=== PATIENT | male | born 1955 | race Caucasian/White ===

== ENCOUNTER → 2021-12-27 | Outpatient (CLI) | payer OTHER | END | disposition home or self-care (01) | LOC: Rad HDHVI 16:08 | PROVIDERS: ATTEND Internal Medicine Cardiovascular Disease | DX: I65.23 Occlusion and stenosis of bilateral carotid arteries (principal); I10 Essential (primary) hypertension | CPT/HCPCS: 93880 ==

== ENCOUNTER → 2021-12-30 | Outpatient (CLI) | payer OTHER | END | disposition home or self-care (01) | LOC: Rad HDHVI 13:46 | PROVIDERS: ATTEND Internal Medicine Cardiovascular Disease | DX: I10 Essential (primary) hypertension (principal) | CPT/HCPCS: 93306 ==

== ENCOUNTER → 2022-01-04 | Outpatient (CLI) | payer OTHER ==
[~2022-01-04] VITALS: Ht 175.3 cm; Wt 108.9 kg
== END | disposition home or self-care (01) ==
LOC: Rad HDHVI 08:06
PROVIDERS: ATTEND Internal Medicine Cardiovascular Disease
DX: E78.5 Hyperlipidemia, unspecified (principal); I10 Essential (primary) hypertension; J44.9 Chronic obstructive pulmonary disease, unspecified; I50.43 Acute on chronic combined systolic (congestive) and diastolic (congestive) heart failure; Z82.49 Family history of ischemic heart disease and other diseases of the circulatory system
CPT/HCPCS: 78452; 93017; 96374; A9500

== ENCOUNTER → 2022-01-11 | Outpatient (CLI) | payer OTHER | END | disposition home or self-care (01) | LOC: Rad HDHVI 08:58 | PROVIDERS: ATTEND Internal Medicine | DX: M19.012 Primary osteoarthritis, left shoulder (principal) | CPT/HCPCS: 73030 ==

== ENCOUNTER → 2022-01-27 | Outpatient (CLI) | payer OTHER ==
[~2022-01-27] MED LIST: IOHEXOL 350 MG/ML 100ML IJ ONE
== END | disposition home or self-care (01) ==
LOC: Rad HDHVI 09:10
PROVIDERS: ATTEND Internal Medicine
DX: R51.9 Headache, unspecified (principal)
CPT/HCPCS: 70450; Q9967

== ENCOUNTER → 2022-09-19 | Outpatient (CLI) | payer MEDICARE, OTHER | END | disposition home or self-care (01) | LOC: Rad HDHVI 16:06 | PROVIDERS: ATTEND Internal Medicine Cardiovascular Disease | DX: J34.2 Deviated nasal septum (principal); J32.0 Chronic maxillary sinusitis; J34.89 Other specified disorders of nose and nasal sinuses; R23.8 Other skin changes | CPT/HCPCS: 70486 ==

== ENCOUNTER → 2023-12-20 | Outpatient (CLI) | payer MEDICARE, BC | END | disposition home or self-care (01) | LOC: Rad HDHVI 08:05 | PROVIDERS: ATTEND Internal Medicine Cardiovascular Disease | DX: I73.9 Peripheral vascular disease, unspecified (principal) | CPT/HCPCS: 93925 ==

== ENCOUNTER → 2024-01-01 | Outpatient (CLI) | payer MEDICARE, BC | END | disposition home or self-care (01) | LOC: Rad HDHVI 08:02 | PROVIDERS: ATTEND Internal Medicine Cardiovascular Disease | DX: I50.30 Unspecified diastolic (congestive) heart failure (principal) | CPT/HCPCS: 93306 ==

== ENCOUNTER → 2024-01-05 | Outpatient (CLI) | payer MEDICARE, BC ==
[~2024-01-05] VITALS: Ht 175.3 cm; Wt 108.9 kg
== END | disposition home or self-care (01) ==
LOC: Rad HDHVI 08:59
PROVIDERS: ATTEND Internal Medicine Cardiovascular Disease
DX: I11.0 Hypertensive heart disease with heart failure (principal); I51.7 Cardiomegaly; E78.00 Pure hypercholesterolemia, unspecified; I50.33 Acute on chronic diastolic (congestive) heart failure; Z82.49 Family history of ischemic heart disease and other diseases of the circulatory system
CPT/HCPCS: 78452; 93017; 96374; A9500

== ENCOUNTER 2024-11-22 17:36 | Emergency (ER) | payer BC, MEDICARE, OTHER ==
[~2024-11-22] VITALS: Ht 172.7 cm; Wt 105.5 kg
--- NOTE | 2024-11-22 17:42 | ECG ---
[facility] Test Date: 2024-11-22 Test Time: 17:41:29 Pat Name: ARETHA BARBOZA Department: ER Room: Gender: M Sole Assessor: JOHANNY : 1955 Requested By: EMERGENCY EMERGENCY Order Number: [id number] Reading MD: Desean Werner Measurements Intervals [place] Rate: 88 P: 21 WA: 244 QRS: -3 QRSD: 150 T: 6 QT: 391 QTc: 473 Interpretive Statements Sinus rhythm Prolonged WA interval Right bundle branch block Electronically Signed On 11-24-2024 16:47:19 PDT by Desean Werner Please click the below link to view image of tracing.
--- NOTE | 2024-11-22 17:52 | ED.PDOC ---
HPI Comments This is a 69 year old male presents to the ED with chief complaint of chest pain. Patient reports that he had been diagnosed previously with Pericarditis in [place] on 11/06. Patient relays that he was admitted for a night with IV antibiotics and sent home the next day with antibiotics. Patient states that he had been experiencing chest pressure at the time, but is still present, occurring intermittently since then with associated SOB. Patient notes that his current pain i 09/19. Patient denies any N/V, dizziness, syncope, headache, numbness, or weakness. No signs were stable at arrival. Chief Complaint: Chest Pain Time Seen by MD: 17:49 Reviewed Notes: Nurses Notes, Medications, Allergies Allergies: Coded Allergies: NO KNOWN ALLERGIES (Unverified , 01/04/22) Information Source: Patient, Spouse Mode of Arrival: Ambulatory Severity: Moderate Timing: Weeks Duration: Since onset Prehospital treatment: None Location: Substernal Radiation: No Radiation Quality: Pressure Onset: At Rest Cardiac Risk Factors: HTN PE Risk Factors: None History of: Similar pain in past Associated Signs and Symptoms: SOB Past Medical History PAST MEDICAL HISTORY: HTN Surgical History (Other): Shoulder surgery, back surgery Family History Family History: Reviewed,noncontributory to illness Social History Smoker: Non-Smoker Alcohol: Denies ETOH Use Drugs: Denies Drug Use Lives In: Home Constitutional: denies: chills, diaphoresis, fatigue, fever, malaise, sweats, weakness, others EENTM: denies: blurred vision, double vision, ear bleeding, ear discharge, ear drainage, ear pain, ear ringing, eye pain, eye redness, hearing loss, mouth pain , mouth swelling, nasal discharge, nose bleeding, nose congestion, nose pain, photophobia, tearing, throat pain, throat swelling, voice changes, others Respiratory: reports: shortness of breath; denies: cough, hemoptysis, orthopnea, SOB at rest, SOB with excertion, stridor, wheezing, others Cardiovascular: reports: chest pain; denies: dizzy spells, diaphoresis, Dyspnea on exertion, edema, irregular heart beat, left arm pain, lightheadedness, palpitations, PND, syncope, others Gastrointestinal: denies: abdomen distended, abdominal pain, blood streaked bowels, constipated, diarrhea, dysphagia, difficulty swallowing, hematemesis, melena, nausea, poor appetite, poor fluid intake, rectal bleeding, rectal pain, vomiting, others Genitourinary: denies: burning, dysuria, flank pain, frequency, hematuria, incontinence, penile discharge, penile sore, pain, testicle pain, testicle swelling, urgency, others Neurological: denies: dizziness, fainting, headache, left sided numbness, left sided weakness, numbness, paresthesia, pre-existing deficit, right sided numbness, right sided weakness, seizure, speech problems, tingling, tremors, weakness, others Musculoskeletal: denies: back pain, gout, joint pain, joint swelling, muscle pain, muscle stiffness, neck pain, others Integumetry: denies: bruises, change in color, change in hair/nails, dryness, laceration, lesions, lumps, rash, wounds, others Allergic/Immunocompromised: denies: Difficulty Healing, Frequent Infections, Hives, Itching, others Hematologic/Lymphatic: denies: anemia, blood clots, easy bleeding, easy bruising, swollen glands, others Endocrine: denies: excessive hunger, excessive sweating, excessive thirst, excessive urination, flushing, intolerance to cold, intolerance to heat, unexplained weight gain, unexplained weight loss, others Psychiatric: denies: anxiety, bipolar disorder, depression, hopeless, panic disorder, schizophrenia, sleepless, suicidal, others All Other Systems: Reviewed and Negative Physical Exam General Appearance: Moderate Distress (Gadv-wj-sevspuie distress due to central chest pain concerns.) HEENT: Normal ENT Inspection, Pharynx Normal, TMs Normal Neck: Full Range of Motion, Non-Tender, Normal, Normal Inspection Respiratory: Lungs Clear, No Accessory Muscle Use, No Respiratory Distress, Normal Breath Sounds, Other (Patient complains of substernal chest pain that is unable to be amplified on palpation. No signs of trauma.) Cardiovascular: No Edema, No JVD, No Murmur, No Gallop, Normal Peripheral Pulses, Regular Rate/Rhythm, Other (Unremarkable cardiac evaluation.) Breast Exam: Deferred Gastrointestinal: No Organomegaly, Non Tender, No Pulsatile Mass, Normal Bowel Sounds, Soft Genitalia: Deferred Pelvic: Deferred Rectal: Deferred Extremities: No calf tenderness, Normal capillary refill, Normal inspection, Normal range of motion, Non-tender, No pedal edema Neurologic: Alert, No Motor Deficits, Normal Affect, Normal Mood, No Sensory Deficits Cerebellar Function: Normal Reflexes: Normal Skin: Dry, Normal Color, Warm Lymphatic: No Adenopathy Was a procedure done? Was a procedure done?: No CP Differential Dx Differential Diagnosis: A-fib, Anxiety / Panic Attack, Atrial Dysrhythmia, AV Block 1st Degree, [place] Differential Diagnosis: CHF Differential Diagnosis: Angina, Chest Wall Pain, Pneumonia X-Ray, Labs, Meds, VS Vital Signs Date Time Temp Pulse Resp B/P (MAP) Pulse Ox O2 Delivery O2 Flow Rate FiO2 11/22/24 19:53 94 19 114/75 (88) 94 11/22/24 19:32 114/75 11/22/24 18:32 111/84 11/22/24 18:25 98.1 97 18 111/84 (93) 95 98.1 11/22/24 18:25 97 18 95 Room Air* 0 21 11/22/24 17:49 99.2 99 18 145/94 (111) 96 99.2 11/22/24 17:41 88 Lab Test 11/22/24 18:52 11/22/24 17:55 Range/Units Troponin I High Sensitivity 4 4 </=54 ng/L White Blood Count 10.8 4.4-10.8 10^3/uL Red Blood Count 4.96 4.5-5.90 10^6/uL Hemoglobin 15.4 13.5-17.5 g/dL Hematocrit 44.6 41.0-53.0 % Mean Corpuscular Volume 89.9 80.0-100.0 fL Mean Corpuscular Hemoglobin 31.1 28.0-32.0 pg Mean Corpuscular Hemoglobin Concent 34.6 32.0-36.0 g/dL Red Cell Distribution Width 12.7 11.8-14.3 % Platelet Count 391 140-450 10^3/uL Mean Platelet Volume 6.9 6.9-10.8 fL Neutrophils (%) (Auto) 78.0 37.0-80.0 % Lymphocytes (%) (Auto) 8.2 L 10.0-50.0 % Monocytes (%) (Auto) 13.0 H 0.0-12.0 % Eosinophils (%) (Auto) 0.4 0.0-7.0 % Basophils (%) (Auto) 0.4 0.0-2.0 % Neutrophils # (Auto) 8.4 1.6-8.6 10 ^3/uL Lymphocytes # (Auto) 0.9 0.4-5.4 10 ^3/uL Monocytes # (Auto) 1.4 H 0-1.3 10 ^3/uL Eosinophils # (Auto) 0 0-0.8 10 ^3/uL Basophils # (Auto) 0 0-0.2 10 ^3/uL Nucleated Red Blood Cells 0.0 % Sodium Level 139 136-145 mmol/L Potassium Level 4.0 3.5-5.1 mmol/L Chloride Level 100 98-107 mmol/L Carbon Dioxide Level 29 20-31 mmol/L Anion Gap 10 5-15 Blood Urea Nitrogen 18 9-23 mg/dL Creatinine 1.09 0.700-1.30 mg/dL Glomerular Filtration Rate Calc 74 >90 mL/min BUN/Creatinine Ratio 16.5 10.0-20.0 Serum Glucose 120 H 74-106 mg/dL Calcium Level 10.3 8.7-10.4 mg/dL B-Type Natriuretic Peptide 45.44 0-100 pg/mL Current Medications Medications (Trade) Dose Ordered Sig/Pascale Route Start Time Stop Time Status Last Admin Nitroglycerin (Ntrostat Sublingual) 0.4 mg ONCE ONCE SL 11/22/24 18:00 11/22/24 18:01 DC 11/22/24 18:32 Aspirin 81 mg ONCE ONCE PO 11/22/24 18:00 11/22/24 18:01 DC 11/22/24 18:31 X-Ray, Labs, Meds, VS Comment All studies performed the ED were evaluated by me personally. Serum studies were unremarkable for any systemic processes including unremarkable cardiac markers. EKG revealed a sinus rhythm with a rate of 88. Prolonged FL interval and right bundle-branch block was noted. FL interval of 244 and QT interval of 391. Chest x-ray was unremarkable for any consolidation or signs of intrapulmonary masses or concerns. Patient responded well to medication dispensed. Advised patient to follow up with primary care provider as he may be experiencing angina from a coronary artery concern. Time of 1ST Reevaluation: 20:42 Reevaluation 1ST: Improved Consultation: PCP, Cardiology Patient Education/Counseling: Diagnosis, Treatment Family Education/Counseling: Diagnosis, Treatment, No Family Present Departure 1 Departure Time of Disposition: 20:47 Impression: Primary Impression: Chest pain Disposition: HOME / SELF CARE / HOMELESS Condition: Stable Additional Instructions: Advised patient utilize medication as needed for symptomatic relief. Patient should follow up with the primary care provider for re-evaluation and probable cardiac referral. e-Prescriptions Nitroglycerin (Nitrostat) 0.4 Mg Sub 0.4 MG SL Q6HP PRN, #10 INJ Prov: HAILE ESPINOSA PAC 11/22/24 Discharged With: Self, Spouse Critical Care Note Critical Care Time?: No Stability Stability form required: No Heart Score Heart Score: Heart Score Response (Comments) Value History Slightly Suspicious 0 EKG Repolarization Disturb 1 Age >65 2 Risk Factors 1 or 2 risk factors 1 Troponin Normal limit 0 Total 4 I personally scribed for HAILE ESPINOSA PAC ([email or web address]) on 11/22/24 at 17:52. Electronically submitted by Jeremie Witt ([email or web address]). HAILE ESPINOSA PAC Nov 22, 2024 17:52
[2024-11-22 18:15] LABS: Basophils # (auto) 0 10 ^3/uL (0-0.2); Basophils % (auto) 0.4 % (0.0-2.0); Eosinophils # (auto) 0 10 ^3/uL (0-0.8); Eosinophils % (auto) 0.4 % (0.0-7.0); Hematocrit 44.6 % (41.0-53.0); Hemoglobin 15.4 g/dL (13.5-17.5); Lymphocytes # (auto) 0.9 10 ^3/uL (0.4-5.4); Lymphocytes % (auto) 8.2 % (10.0-50.0); Mean Corpuscular Hemoglobin 31.1 pg (28.0-32.0); Mean Corpuscular Hgb Conc. 34.6 g/dL (32.0-36.0); Mean Corpuscular Volume 89.9 fL (80.0-100.0); Monocytes # (auto) 1.4 10 ^3/uL (0-1.3); Neutrophils # (auto) 8.4 10 ^3/uL (1.6-8.6); Platelet Count (auto) 391 10^3/uL (140-450); Red Blood Cells 4.96 10^6/uL (4.5-5.90); Red Cell Distribution Width 12.7 % (11.8-14.3); White Blood Cell 10.8 10^3/uL (4.4-10.8)
[2024-11-22 18:24] LABS: Chloride 100 mmol/L (98-107); Sodium 139 mmol/L (136-145)
[2024-11-22 18:25] VITALS: PULSE 97; RESP 18; TEMP 98.1; O2SAT 95
[2024-11-22 18:25] LABS: Anion Gap 10 (5-15); Carbon Dioxide 29 mmol/L (20-31)
[2024-11-22 18:26] LABS: Calcium 10.3 mg/dL (8.7-10.4)
--- NOTE | 2024-11-22 18:26 | DVH ---
CHEST RADIOGRAPH Indication: Chest pain Technique: Single frontal view of the chest was obtained Comparison: None FINDINGS: Lines and Tubes: None Lungs: No focal consolidation. Pleura: No effusion. No pneumothorax. Cardiomediastinal contours: Unremarkable Bones: No acute osseous abnormality. IMPRESSION: 1. No acute cardiopulmonary disease.
[2024-11-22 18:31] LABS: BUN/Creatinine Ratio 16.5 (10.0-20.0); Blood Urea Nitrogen 18 mg/dL (9-23)
[2024-11-22] MEDS: ASPirin 81 mg TAB PO ONE (18:31)
[2024-11-22 18:32] LABS: Glucose 120 mg/dL (74-106)
[2024-11-22] MEDS: NITROGLYCERIN 0.4 MG SL TAB SL ONE (18:32)
[2024-11-22] MEDS ORDERED: NITR0.4S29 SL (20:48)
[2024-11-22 21:25] VITALS: BP 114/75; PULSE 94; RESP 19; O2SAT 94
== END 2024-11-22 21:48 | disposition home or self-care (01) ==
LOC: ER 17:36
DX: R07.89 Other chest pain (principal); R06.02 Shortness of breath; I10 Essential (primary) hypertension; Z98.890 Other specified postprocedural states
CPT/HCPCS: 36415; 71045; 80048; 83880; 84484; 85025; 93005

== ENCOUNTER 2025-01-08 07:50 | Outpatient (CLI) | payer OTHER ==
[~2025-01-08 07:50] MED LIST changes: -IOHEXOL 350 MG/ML 100ML IJ ONE; +NITR0.4S29 SL
[2025-01-08 08:18] LABS: Hematocrit 42.7 % (41.0-53.0); Hemoglobin 14.8 g/dL (13.5-17.5); Mean Corpuscular Hemoglobin 31.4 pg (28.0-32.0); Mean Corpuscular Volume 90.8 fL (80.0-100.0); Nucleated Red Blood Cells % 0.1 %
[2025-01-08 09:11] LABS: Alanine Aminotransferase 22 U/L (7-40); Albumin 4.2 g/dL (3.2-4.8); Alkaline Phosphatase 66 U/L (46-116); Anion Gap 9 (5-15); BUN/Creatinine Ratio 15.2 (10.0-20.0); Bilirubin, Total 0.6 mg/dL (0.2-1.0); Blood Urea Nitrogen 12 mg/dL (9-23); Calcium 9.3 mg/dL (8.7-10.4); Carbon Dioxide 25 mmol/L (20-31); Cholesterol 143 mg/dL (< 200); HDL Cholesterol 41 mg/dL (40-59); Potassium 4.0 mmol/L (3.5-5.1); Sodium 143 mmol/L (136-145); Total Protein 6.3 g/dL (5.7-8.2); Triglycerides 79 mg/dL (< 150)
[2025-01-08 09:19] LABS: Chloride 109 mmol/L (98-107); Glucose 112 mg/dL (74-106)
== END 2025-01-08 17:00 | disposition home or self-care (01) ==
LOC: LAB 07:50
PROVIDERS: ATTEND Nurse Practitioner Family
DX: I10 Essential (primary) hypertension (principal); E78.5 Hyperlipidemia, unspecified; R73.9 Hyperglycemia, unspecified; R35.1 Nocturia; Z00.00 Encounter for general adult medical examination without abnormal findings
CPT/HCPCS: 36415; 80053; 80061; 82043; 83036; 84153; 84443; 85025

== ENCOUNTER 2025-01-20 12:52 | Outpatient (CLI) | payer OTHER ==
[2025-01-20 12:58] VITALS: BP 130/69; PULSE 70; RESP 18; O2SAT 95
[2025-01-20 13:10] VITALS: BP 117/62; PULSE 70; RESP 18; O2SAT 95
--- NOTE | 2025-01-20 14:01 | DVH ---
XY CHEST TWO VIEWS ROUTINE CLINICAL HISTORY: PRE OP CARDIA CLEARANCE, pain COMPARISON: XY CHEST PORTABLE on DOS: 11/22/24 TECHNIQUE: Frontal and lateral view of the chest was obtained FINDINGS: Lines and Tubes: None Lungs: No focal consolidation. Pleura: No effusion. No pneumothorax. Cardiomediastinal contours: Unremarkable Bones: No acute osseous abnormality. IMPRESSION: No acute cardiopulmonary disease.
[2025-01-20] MEDS ORDERED: METO25TA93 PO (15:03)
[2025-01-20] MEDS ORDERED: TRIA37.587 PO (15:03)
[2025-01-20] MEDS ORDERED: SIMV20TA20 PO (15:03)
[2025-01-20] MEDS ORDERED: LISI20TA56 PO (15:03)
[2025-01-20] MEDS ORDERED: MECL-90 PO (15:03)
[2025-01-20] MEDS ORDERED: FLUT1SPR5 (15:03)
[2025-01-20] MEDS ORDERED: NITR0.4S29 SL (15:03)
[2025-01-20] MEDS ORDERED: CLOP75TA70 PO (15:05)
== END 2025-01-20 17:00 | disposition home or self-care (01) ==
LOC: Rad HDHVI 12:52
PROVIDERS: ATTEND Internal Medicine Cardiovascular Disease
DX: Z01.818 Encounter for other preprocedural examination (principal); I20.9 Angina pectoris, unspecified; I45.10 Unspecified right bundle-branch block
CPT/HCPCS: 71046; 93005; G0463

== ENCOUNTER 2025-01-22 14:59 | Outpatient (CLI) | payer OTHER ==
[~2025-01-22 14:59] MED LIST changes: +CLOP75TA70 PO; +FLUT1SPR5; +LISI20TA56 PO; +MECL-90 PO; +METO25TA93 PO; +SIMV20TA20 PO; +TRIA37.587 PO
== END 2025-01-22 17:00 | disposition home or self-care (01) ==
LOC: Rad HDHVI 14:59
PROVIDERS: ATTEND Internal Medicine Cardiovascular Disease
DX: I07.1 Rheumatic tricuspid insufficiency (principal); R07.89 Other chest pain
CPT/HCPCS: 93306

== ENCOUNTER 2025-01-23 07:20 | Day surgery (SDC) | payer OTHER ==
[2025-01-20 15:50] LABS: Hematocrit 42.8 % (41.0-53.0); Hemoglobin 14.9 g/dL (13.5-17.5); Mean Corpuscular Hemoglobin 31.4 pg (28.0-32.0); Mean Corpuscular Volume 90.6 fL (80.0-100.0); Nucleated Red Blood Cells % 0.0 %
[2025-01-20 16:08] LABS: INR 1.03 (0.9-1.15); Partial Thromboplastin Time 27.3 SEC (24.5-34.5); Prothrombin Time 10.9 sec (9.3-11.8)
[2025-01-20 16:11] LABS: Alanine Aminotransferase 32 U/L (7-40); Albumin 4.7 g/dL (3.2-4.8); Alkaline Phosphatase 76 U/L (46-116); Anion Gap 7 (5-15); BUN/Creatinine Ratio 17.2 (10.0-20.0); Blood Urea Nitrogen 15 mg/dL (9-23); Calcium 9.2 mg/dL (8.7-10.4); Carbon Dioxide 30 mmol/L (20-31); Chloride 103 mmol/L (98-107); Glucose 98 mg/dL (74-106); Potassium 3.9 mmol/L (3.5-5.1); Sodium 140 mmol/L (136-145); Total Protein 7.1 g/dL (5.7-8.2)
[2025-01-20 16:12] LABS: Bilirubin, Total 0.3 mg/dL (0.2-1.0)
[2025-01-23] VITALS (8 sets, daily range): BP systolic 124–169; BP diastolic 76–96; PULSE 50–59; RESP 13–19; TEMP 97.8; O2SAT 93–96
[~2025-01-23] VITALS: Ht 175.3 cm; Wt 104.3 kg
[2025-01-23] MEDS ORDERED: IOHEXOL 350 MG/ML 100ML IJ ONE ×2 (11:43→13:13)
[2025-01-23] MEDS ORDERED: ANGIOMAX 250 MG VIAL IV ONE (11:46)
[2025-01-23] MEDS ORDERED: SODIUM CHL 0.9% 0 ML ONE (11:47)
[2025-01-23] MEDS ORDERED: fentaNYL CITRATE 100 MCG/2 ML VL ONE (11:47)
[2025-01-23] MEDS ORDERED: MIDAZOLAM HCL 2MG/2ML 2ml VIAL (1mg/ml) ONE (11:47)
[2025-01-23] MEDS ORDERED: LIDOCAINE 2%HCL (LOCAL ANESTH.) INJ 20ML MDV ONE (11:47)
--- NOTE | 2025-01-23 12:48 | DVHHP ---
ADMIT DATE: 01/23/2025 HISTORY OF PRESENT ILLNESS: The patient who is 69 years old, presented to the Emergency Room while he was visiting [place] with chest pain. Serial troponins were done and it was negative and the patient was told that he may have pericarditis and was sent home, but he is continuing to have exertional chest pain. Even with minimal exertion, the patient gets symptoms of chest pain, relieved with nitroglycerin. His EKG does not show any acute changes other than right bundle-branch block, has chronic right bundle branch block at this time. No acute changes are noted when compared to previous EKG. Furthermore, the patient's sed rate was normal and there is no pericardial effusion by echocardiography as well. Left ventricular function is preserved, but because of ongoing chest pain, exertional in nature, it is felt that the patient should undergo coronary angiography rather than doing another stress test. REVIEW OF SYSTEMS: The patient denies any fever or chills. No melena or hematochezia. No myalgia. No arthralgia. No history of any bleeding diathesis, hematemesis, hemoptysis, melena, hematochezia. No hematuria. Denies any history of recent travel. No infection at this time. No pneumonia at this time. Denies any trauma to the chest or otherwise. Denies any GI symptomatology such as diarrhea, constipation, epigastric pain. Denies any history of liver disease or kidney disease. He is hypertensive however. PHYSICAL EXAMINATION: VITAL SIGNS: Blood pressure is 124/80, pulse is 70, O2 saturation 98% on room air. HEENT: Pupils are reactive. Funduscopic exam shows no AV nicking, no exudates, no papilledema. Sclerae anicteric. Extraocular muscles are intact. Tympanic membranes are negative. PULMONARY: Clear to auscultation. Tympanic to percussion. CARDIOVASCULAR: Regular rate without S3, without S4. PMI is not displaced. No rubs or clicks appreciated. ABDOMEN: Soft, nontender. Normal bowel sounds. SKIN: Unremarkable. EXTREMITIES: 2+ pulses. ASSESSMENT AND PLAN: Thus, the patient with chest pain, exertional, was started on Plavix 75 mg p.o. daily because high index of suspicion of coronary artery disease. With the right bundle-branch morphology, it is very difficult to interpret. Although, initial EKGs in the past have shown bundle branch, but there seems to be bundle switching taking place as well. We will make further recommendations after left heart catheterization. Brayna Clarke MD SA/WEST/AMI TID: [id number] RECEIPT: [id number]
[2025-01-23] MEDS ORDERED: HEPARIN IN NS 1000Units/500mL 0 ML ONE (13:13)
--- NOTE | 2025-01-23 13:30 | DVHOP ---
DATE OF SURGERY: 01/23/2025 PROCEDURES PERFORMED: * Selective left and right coronary angiography. * Ventriculogram. * Right iliac angiography. * Conscious sedation. DESCRIPTION OF PROCEDURE: The patient was prepped and draped under sterile condition. 1% Xylocaine was used to anesthetize the right groin. Using Cook needle, right femoral artery was engaged using a Seldinger technique, a 6-[place] sheath was placed in the right femoral artery. Using 6-[place] JL4 catheter and a 6-[place] JR4 catheter, selective left and right coronary angiographies were performed. Using a 6-[place] pigtail catheter, ventriculogram was done. Total contrast used was 50 mL of Optiray. Total fluoroscopy was 1.2 minutes. RESULTS: * Left main was patent. Left anterior descending artery was patent with a rapid tapering with extensive small vessel disease noted. Circumflex artery essentially less than 1 mm in size. * Right coronary artery without any flow restrictive lesion, once again, paucity of branches, consistent with small vessel disease. * Left ventricular function showed an EF of 55% with LVEDP of 10 mmHg with no gradient across the aortic valve. Thus, the patient has normal LVEDP, small vessel disease, paucity of branches in the LAD, circumflex so small that we are not even able to visualize. * Right coronary artery once again shows paucity of branches. The patient would benefit from EECP too. Rheumatologic workup should be completed. Small vessel is extensive ____ secondary to diabetes or connective tissue disorder such as lupus, rheumatoid arthritis, etc. Pericarditis cannot be excluded. Repeat echo should be done to look at any pleural effusion. Sed rate should be considered. At this time, no reason for any intervention, invasive or percutaneous. We will continue to follow patient. Brayan Clarke MD SA/GHAZALA/JOSE TID: [id number] RECEIPT: [id number]
== END 2025-01-23 14:40 | disposition home or self-care (01) ==
LOC: CATH 07:20
PROVIDERS: ATTEND Internal Medicine Cardiovascular Disease
DX: R07.89 Other chest pain (principal); I45.10 Unspecified right bundle-branch block; R79.1 Abnormal coagulation profile; I73.9 Peripheral vascular disease, unspecified; E11.51 Type 2 diabetes mellitus with diabetic peripheral angiopathy without gangrene
CPT/HCPCS: 36415; 80053; 85025; 85610; 85730; 93458; C1894; J1644; J2250; J3010; J7030; Q9967; 99152

== ENCOUNTER 2025-02-18 09:00 | Outpatient (CLI) | payer OTHER ==
[2025-02-18 11:51] VITALS: BP 138/82; PULSE 74
[2025-02-18 11:52] VITALS: BP 135/76; PULSE 79
== END 2025-02-18 17:00 | disposition home or self-care (01) ==
LOC: CHF HDHVI 09:00
PROVIDERS: ATTEND Internal Medicine Cardiovascular Disease
DX: I25.118 Atherosclerotic heart disease of native coronary artery with other forms of angina pectoris (principal); I11.0 Hypertensive heart disease with heart failure; I50.33 Acute on chronic diastolic (congestive) heart failure; R06.02 Shortness of breath; I73.9 Peripheral vascular disease, unspecified
CPT/HCPCS: G0166

== ENCOUNTER 2025-02-19 09:56 | Outpatient (CLI) | payer OTHER ==
[2025-02-19 11:48] VITALS: BP_SYST 145; BP_SYST 150; BP_DIAS 90; BP_DIAS 98; PULSE 63; PULSE 68
== END 2025-02-19 17:00 | disposition home or self-care (01) ==
LOC: CHF HDHVI 09:56
PROVIDERS: ATTEND Internal Medicine Cardiovascular Disease
DX: I25.118 Atherosclerotic heart disease of native coronary artery with other forms of angina pectoris (principal); I11.0 Hypertensive heart disease with heart failure; I50.33 Acute on chronic diastolic (congestive) heart failure; I73.9 Peripheral vascular disease, unspecified; R06.02 Shortness of breath
CPT/HCPCS: G0166

== ENCOUNTER 2025-02-20 08:59 | Outpatient (CLI) | payer OTHER ==
[2025-02-20 11:09] VITALS: BP 128/79; PULSE 76
[2025-02-20 11:10] VITALS: BP 130/80; PULSE 62
== END 2025-02-20 17:00 | disposition home or self-care (01) ==
LOC: CHF HDHVI 08:59
PROVIDERS: ATTEND Internal Medicine Cardiovascular Disease
DX: I25.118 Atherosclerotic heart disease of native coronary artery with other forms of angina pectoris (principal); I11.0 Hypertensive heart disease with heart failure; I50.33 Acute on chronic diastolic (congestive) heart failure; R06.02 Shortness of breath; I73.9 Peripheral vascular disease, unspecified
CPT/HCPCS: G0166

== ENCOUNTER 2025-02-21 08:58 | Outpatient (CLI) | payer OTHER ==
[2025-02-21 10:49] VITALS: BP 140/89; PULSE 63
[2025-02-21 10:50] VITALS: BP 143/90; PULSE 64
== END 2025-02-21 17:00 | disposition home or self-care (01) ==
LOC: CHF HDHVI 08:58
PROVIDERS: ATTEND Internal Medicine Cardiovascular Disease
DX: I25.118 Atherosclerotic heart disease of native coronary artery with other forms of angina pectoris (principal); I11.0 Hypertensive heart disease with heart failure; I50.33 Acute on chronic diastolic (congestive) heart failure; R06.02 Shortness of breath; I73.9 Peripheral vascular disease, unspecified
CPT/HCPCS: G0166

== ENCOUNTER 2025-02-24 08:51 | Outpatient (CLI) | payer OTHER ==
[2025-02-24 11:07] VITALS: BP 138/90; PULSE 60
[2025-02-24 11:13] VITALS: BP 138/89; PULSE 66
== END 2025-02-24 17:00 | disposition home or self-care (01) ==
LOC: CHF HDHVI 08:51
PROVIDERS: ATTEND Internal Medicine Cardiovascular Disease
DX: I25.118 Atherosclerotic heart disease of native coronary artery with other forms of angina pectoris (principal); I50.33 Acute on chronic diastolic (congestive) heart failure; I73.9 Peripheral vascular disease, unspecified; R06.02 Shortness of breath
CPT/HCPCS: G0166

== ENCOUNTER 2025-02-25 09:07 | Outpatient (CLI) | payer OTHER ==
[2025-02-25 10:31] VITALS: BP 131/81; PULSE 81
[2025-02-25 10:32] VITALS: BP 132/85; PULSE 75
== END 2025-02-25 17:00 | disposition home or self-care (01) ==
LOC: CHF HDHVI 09:07
PROVIDERS: ATTEND Internal Medicine Cardiovascular Disease
DX: I25.118 Atherosclerotic heart disease of native coronary artery with other forms of angina pectoris (principal); I11.0 Hypertensive heart disease with heart failure; I50.33 Acute on chronic diastolic (congestive) heart failure; I73.9 Peripheral vascular disease, unspecified; R06.02 Shortness of breath
CPT/HCPCS: G0166

== ENCOUNTER 2025-02-26 10:03 | Outpatient (CLI) | payer OTHER ==
[2025-02-26 12:55] VITALS: BP_SYST 128; BP_SYST 141; BP_DIAS 80; BP_DIAS 99; PULSE 64; PULSE 71
== END 2025-02-26 17:00 | disposition home or self-care (01) ==
LOC: CHF HDHVI 10:03
PROVIDERS: ATTEND Internal Medicine Cardiovascular Disease
DX: I25.118 Atherosclerotic heart disease of native coronary artery with other forms of angina pectoris (principal); I11.0 Hypertensive heart disease with heart failure; I50.33 Acute on chronic diastolic (congestive) heart failure; I73.9 Peripheral vascular disease, unspecified; R06.02 Shortness of breath
CPT/HCPCS: G0166

== ENCOUNTER 2025-02-27 09:02 | Outpatient (CLI) | payer OTHER ==
[2025-02-27 10:32] VITALS: BP 128/80; PULSE 65
[2025-02-27 10:33] VITALS: BP 130/86; PULSE 72
== END 2025-02-27 17:00 | disposition home or self-care (01) ==
LOC: CHF HDHVI 09:02
PROVIDERS: ATTEND Internal Medicine Cardiovascular Disease
DX: I25.118 Atherosclerotic heart disease of native coronary artery with other forms of angina pectoris (principal); I11.0 Hypertensive heart disease with heart failure; I50.33 Acute on chronic diastolic (congestive) heart failure; I73.9 Peripheral vascular disease, unspecified; R06.02 Shortness of breath
CPT/HCPCS: G0166

== ENCOUNTER 2025-02-28 09:07 | Outpatient (CLI) | payer OTHER ==
[2025-02-28 11:14] VITALS: BP 160/90; PULSE 75
[2025-02-28 11:15] VITALS: BP 149/100; PULSE 64
== END 2025-02-28 17:00 | disposition home or self-care (01) ==
LOC: CHF HDHVI 09:07
PROVIDERS: ATTEND Internal Medicine Cardiovascular Disease
DX: I25.118 Atherosclerotic heart disease of native coronary artery with other forms of angina pectoris (principal); I11.0 Hypertensive heart disease with heart failure; I50.33 Acute on chronic diastolic (congestive) heart failure; I73.9 Peripheral vascular disease, unspecified; R06.02 Shortness of breath
CPT/HCPCS: G0166

== ENCOUNTER 2025-03-17 09:02 | Outpatient (CLI) | payer OTHER ==
[2025-03-17 10:25] VITALS: BP 136/80; PULSE 62
[2025-03-17 10:26] VITALS: BP 134/78; PULSE 57
== END 2025-03-17 17:00 | disposition home or self-care (01) ==
LOC: CHF HDHVI 09:02
PROVIDERS: ATTEND Internal Medicine Cardiovascular Disease
DX: I25.118 Atherosclerotic heart disease of native coronary artery with other forms of angina pectoris (principal); I50.33 Acute on chronic diastolic (congestive) heart failure; I73.9 Peripheral vascular disease, unspecified; R06.02 Shortness of breath
CPT/HCPCS: G0166

== ENCOUNTER 2025-03-25 09:06 | Outpatient (CLI) | payer OTHER ==
[2025-03-25 10:24] VITALS: BP 142/90; PULSE 62
[2025-03-25 10:25] VITALS: BP 138/86; PULSE 64
== END 2025-03-26 17:00 | disposition home or self-care (01) ==
LOC: CHF HDHVI 09:06
PROVIDERS: ATTEND Internal Medicine Cardiovascular Disease
DX: I25.118 Atherosclerotic heart disease of native coronary artery with other forms of angina pectoris (principal); I50.33 Acute on chronic diastolic (congestive) heart failure; I73.9 Peripheral vascular disease, unspecified; R06.02 Shortness of breath
CPT/HCPCS: G0166

== ENCOUNTER 2025-03-26 09:06 | Outpatient (CLI) | payer OTHER ==
[2025-03-26 10:35] VITALS: BP 136/88; PULSE 72
[2025-03-26 10:36] VITALS: BP 150/98; PULSE 65
== END 2025-03-26 17:00 | disposition home or self-care (01) ==
LOC: CHF HDHVI 09:06
PROVIDERS: ATTEND Internal Medicine Cardiovascular Disease
DX: I25.118 Atherosclerotic heart disease of native coronary artery with other forms of angina pectoris (principal); I50.33 Acute on chronic diastolic (congestive) heart failure; R06.02 Shortness of breath; I73.9 Peripheral vascular disease, unspecified
CPT/HCPCS: G0166

== ENCOUNTER 2025-03-27 09:05 | Outpatient (CLI) | payer OTHER ==
[2025-03-27 14:49] VITALS: BP 136/86; PULSE 58
[2025-03-27 14:50] VITALS: BP 134/84; PULSE 64
== END 2025-03-27 17:00 | disposition home or self-care (01) ==
LOC: CHF HDHVI 09:05
PROVIDERS: ATTEND Internal Medicine Cardiovascular Disease
DX: I25.118 Atherosclerotic heart disease of native coronary artery with other forms of angina pectoris (principal); I50.33 Acute on chronic diastolic (congestive) heart failure; I73.9 Peripheral vascular disease, unspecified; R06.02 Shortness of breath
CPT/HCPCS: G0166

== ENCOUNTER 2025-03-28 09:04 | Outpatient (CLI) | payer OTHER ==
[2025-03-28 10:55] VITALS: BP 126/84; PULSE 69
[2025-03-28 10:56] VITALS: BP 130/83; PULSE 70
== END 2025-03-28 17:00 | disposition home or self-care (01) ==
LOC: CHF HDHVI 09:04
PROVIDERS: ATTEND Internal Medicine Cardiovascular Disease
DX: I25.118 Atherosclerotic heart disease of native coronary artery with other forms of angina pectoris (principal); I50.33 Acute on chronic diastolic (congestive) heart failure; I73.9 Peripheral vascular disease, unspecified; R06.02 Shortness of breath
CPT/HCPCS: G0166

== ENCOUNTER 2025-03-31 09:14 | Outpatient (CLI) | payer OTHER ==
[2025-03-31 11:17] VITALS: BP 144/88; PULSE 60
[2025-03-31 11:18] VITALS: BP 142/88; PULSE 61
== END 2025-03-31 17:00 | disposition home or self-care (01) ==
LOC: CHF HDHVI 09:14
PROVIDERS: ATTEND Internal Medicine Cardiovascular Disease
DX: I25.118 Atherosclerotic heart disease of native coronary artery with other forms of angina pectoris (principal); I50.33 Acute on chronic diastolic (congestive) heart failure; I73.9 Peripheral vascular disease, unspecified; R06.02 Shortness of breath
CPT/HCPCS: G0166

== ENCOUNTER 2025-04-02 09:07 | Outpatient (CLI) | payer OTHER ==
[2025-04-02 14:53] VITALS: BP 133/86; PULSE 67
[2025-04-02 14:54] VITALS: BP 135/84; PULSE 65
== END 2025-04-02 17:00 | disposition home or self-care (01) ==
LOC: CHF HDHVI 09:07
PROVIDERS: ATTEND Internal Medicine Cardiovascular Disease
DX: I25.118 Atherosclerotic heart disease of native coronary artery with other forms of angina pectoris (principal); I50.33 Acute on chronic diastolic (congestive) heart failure; R06.02 Shortness of breath; I73.9 Peripheral vascular disease, unspecified
CPT/HCPCS: G0166

== ENCOUNTER 2025-04-03 09:08 | Outpatient (CLI) | payer OTHER ==
[2025-04-03 15:58] VITALS: BP 124/86; PULSE 66
[2025-04-03 15:59] VITALS: BP 138/68; PULSE 67
== END 2025-04-03 17:00 | disposition home or self-care (01) ==
LOC: CHF HDHVI 09:08
PROVIDERS: ATTEND Internal Medicine Cardiovascular Disease
DX: I25.118 Atherosclerotic heart disease of native coronary artery with other forms of angina pectoris (principal); I11.0 Hypertensive heart disease with heart failure; I50.33 Acute on chronic diastolic (congestive) heart failure; R06.02 Shortness of breath; I73.9 Peripheral vascular disease, unspecified
CPT/HCPCS: G0166

== ENCOUNTER 2025-04-04 10:15 | Outpatient (CLI) | payer OTHER ==
[2025-04-04 10:51] VITALS: BP 141/80; PULSE 68
[2025-04-04 10:52] VITALS: BP 130/80; PULSE 61
== END 2025-04-04 17:00 | disposition home or self-care (01) ==
LOC: CHF HDHVI 10:15
PROVIDERS: ATTEND Internal Medicine Cardiovascular Disease
DX: I25.118 Atherosclerotic heart disease of native coronary artery with other forms of angina pectoris (principal); I11.0 Hypertensive heart disease with heart failure; I50.33 Acute on chronic diastolic (congestive) heart failure; I73.9 Peripheral vascular disease, unspecified; R06.02 Shortness of breath
CPT/HCPCS: G0166

== ENCOUNTER 2025-04-07 12:51 | Outpatient (CLI) | payer OTHER ==
[2025-04-07 13:17] VITALS: BP 135/80; PULSE 61
[2025-04-07 14:25] VITALS: BP 140/82; PULSE 66
== END 2025-04-07 17:00 | disposition home or self-care (01) ==
LOC: CHF HDHVI 12:51
PROVIDERS: ATTEND Internal Medicine Cardiovascular Disease
DX: I25.118 Atherosclerotic heart disease of native coronary artery with other forms of angina pectoris (principal); R06.02 Shortness of breath
CPT/HCPCS: G0166

== ENCOUNTER 2025-04-08 09:39 | Outpatient (CLI) | payer OTHER ==
[2025-04-08 10:34] VITALS: BP 126/70; PULSE 60
[2025-04-08 11:34] VITALS: BP 140/80; PULSE 70
== END 2025-04-08 17:00 | disposition home or self-care (01) ==
LOC: CHF HDHVI 09:39
PROVIDERS: ATTEND Internal Medicine Cardiovascular Disease
DX: I25.118 Atherosclerotic heart disease of native coronary artery with other forms of angina pectoris (principal); R06.02 Shortness of breath
CPT/HCPCS: G0166

== ENCOUNTER 2025-04-09 09:52 | Outpatient (CLI) | payer OTHER ==
[2025-04-09 10:26] VITALS: BP 156/84; PULSE 58
[2025-04-09 11:23] VITALS: BP 154/90; PULSE 68
== END 2025-04-09 17:00 | disposition home or self-care (01) ==
LOC: CHF HDHVI 09:52
PROVIDERS: ATTEND Internal Medicine Cardiovascular Disease
DX: I25.118 Atherosclerotic heart disease of native coronary artery with other forms of angina pectoris (principal); I11.0 Hypertensive heart disease with heart failure; I50.33 Acute on chronic diastolic (congestive) heart failure; R06.02 Shortness of breath
CPT/HCPCS: G0166

== ENCOUNTER 2025-04-10 09:53 | Outpatient (CLI) | payer OTHER ==
[2025-04-10 10:31] VITALS: BP 114/70; PULSE 65
[2025-04-10 11:31] VITALS: BP 136/90; PULSE 69
== END 2025-04-10 17:00 | disposition home or self-care (01) ==
LOC: CHF HDHVI 09:53
PROVIDERS: ATTEND Internal Medicine Cardiovascular Disease
DX: I25.118 Atherosclerotic heart disease of native coronary artery with other forms of angina pectoris (principal); I11.0 Hypertensive heart disease with heart failure; I50.33 Acute on chronic diastolic (congestive) heart failure; R06.02 Shortness of breath
CPT/HCPCS: G0166

== ENCOUNTER 2025-04-11 10:09 | Outpatient (CLI) | payer OTHER ==
[2025-04-11 10:55] VITALS: BP 126/80; PULSE 68
[2025-04-11 11:38] VITALS: BP 118/78; PULSE 64
== END 2025-04-11 17:00 | disposition home or self-care (01) ==
LOC: CHF HDHVI 10:09
PROVIDERS: ATTEND Internal Medicine Cardiovascular Disease
DX: I25.118 Atherosclerotic heart disease of native coronary artery with other forms of angina pectoris (principal); R06.02 Shortness of breath; I73.9 Peripheral vascular disease, unspecified
CPT/HCPCS: G0166

== ENCOUNTER 2025-04-14 10:05 | Outpatient (CLI) | payer OTHER ==
[2025-04-14 11:09] VITALS: BP 136/86; PULSE 64
[2025-04-14 11:25] VITALS: BP 132/84; PULSE 62
== END 2025-04-14 17:00 | disposition home or self-care (01) ==
LOC: CHF HDHVI 10:05
PROVIDERS: ATTEND Internal Medicine Cardiovascular Disease
DX: I25.118 Atherosclerotic heart disease of native coronary artery with other forms of angina pectoris (principal); I50.33 Acute on chronic diastolic (congestive) heart failure; R06.02 Shortness of breath
CPT/HCPCS: G0166

== ENCOUNTER 2025-04-15 09:56 | Outpatient (CLI) | payer OTHER ==
[2025-04-15 10:58] VITALS: BP 132/80; PULSE 66
[2025-04-15 11:25] VITALS: BP 128/68; PULSE 65
== END 2025-04-15 17:00 | disposition home or self-care (01) ==
LOC: CHF HDHVI 09:56
PROVIDERS: ATTEND Internal Medicine Cardiovascular Disease
DX: I25.118 Atherosclerotic heart disease of native coronary artery with other forms of angina pectoris (principal); I50.33 Acute on chronic diastolic (congestive) heart failure; R06.02 Shortness of breath
CPT/HCPCS: G0166 ×2

== ENCOUNTER 2025-04-16 09:58 | Outpatient (CLI) | payer OTHER ==
[2025-04-16 10:47] VITALS: BP 130/80; PULSE 71
[2025-04-16 11:24] VITALS: BP 128/80; PULSE 66
== END 2025-04-16 17:00 | disposition home or self-care (01) ==
LOC: CHF HDHVI 09:58
PROVIDERS: ATTEND Internal Medicine Cardiovascular Disease
DX: I25.118 Atherosclerotic heart disease of native coronary artery with other forms of angina pectoris (principal); I73.9 Peripheral vascular disease, unspecified; I50.9 Heart failure, unspecified
CPT/HCPCS: G0166

== ENCOUNTER 2025-04-17 10:06 | Outpatient (CLI) | payer OTHER ==
[2025-04-17 10:38] VITALS: BP 140/82; PULSE 63
[2025-04-17 11:18] VITALS: BP 140/80; PULSE 64
== END 2025-04-17 17:00 | disposition home or self-care (01) ==
LOC: CHF HDHVI 10:06
PROVIDERS: ATTEND Internal Medicine Cardiovascular Disease
DX: I25.118 Atherosclerotic heart disease of native coronary artery with other forms of angina pectoris (principal); I11.0 Hypertensive heart disease with heart failure; I50.33 Acute on chronic diastolic (congestive) heart failure; R06.02 Shortness of breath; I73.9 Peripheral vascular disease, unspecified
CPT/HCPCS: G0166

== ENCOUNTER 2025-04-18 10:11 | Outpatient (CLI) | payer OTHER ==
[2025-04-18 11:05] VITALS: BP 130/82; PULSE 65
[2025-04-18 11:30] VITALS: BP 130/82; PULSE 66
== END 2025-04-18 17:00 | disposition home or self-care (01) ==
LOC: CHF HDHVI 10:11
PROVIDERS: ATTEND Internal Medicine Cardiovascular Disease
DX: I25.118 Atherosclerotic heart disease of native coronary artery with other forms of angina pectoris (principal); I11.0 Hypertensive heart disease with heart failure; I50.33 Acute on chronic diastolic (congestive) heart failure; I73.9 Peripheral vascular disease, unspecified; R06.02 Shortness of breath
CPT/HCPCS: G0166

== ENCOUNTER 2025-04-22 10:03 | Outpatient (CLI) | payer OTHER ==
[2025-04-22 11:00] VITALS: BP 132/80; PULSE 67
[2025-04-22 11:34] VITALS: BP 140/82; PULSE 68
== END 2025-04-22 17:00 | disposition home or self-care (01) ==
LOC: CHF HDHVI 10:03
PROVIDERS: ATTEND Internal Medicine Cardiovascular Disease
DX: I25.118 Atherosclerotic heart disease of native coronary artery with other forms of angina pectoris (principal); I11.0 Hypertensive heart disease with heart failure; I50.33 Acute on chronic diastolic (congestive) heart failure; I73.9 Peripheral vascular disease, unspecified; R06.02 Shortness of breath
CPT/HCPCS: G0166

== ENCOUNTER 2025-04-23 10:06 | Outpatient (CLI) | payer OTHER ==
[2025-04-23 13:21] VITALS: BP 124/79; PULSE 72
[2025-04-23 13:22] VITALS: BP 132/81; PULSE 65
== END 2025-04-23 17:00 | disposition home or self-care (01) ==
LOC: CHF HDHVI 10:06
PROVIDERS: ATTEND Internal Medicine Cardiovascular Disease
DX: I25.118 Atherosclerotic heart disease of native coronary artery with other forms of angina pectoris (principal); I50.33 Acute on chronic diastolic (congestive) heart failure; R06.02 Shortness of breath; I73.9 Peripheral vascular disease, unspecified
CPT/HCPCS: G0166

== ENCOUNTER 2025-04-24 08:57 | Outpatient (CLI) | payer OTHER ==
[2025-04-24 14:00] VITALS: BP 140/80; PULSE 68
[2025-04-24 14:01] VITALS: BP 136/84; PULSE 72
== END 2025-04-24 17:00 | disposition home or self-care (01) ==
LOC: CHF HDHVI 08:57
PROVIDERS: ATTEND Internal Medicine Cardiovascular Disease
DX: I25.118 Atherosclerotic heart disease of native coronary artery with other forms of angina pectoris (principal); I50.33 Acute on chronic diastolic (congestive) heart failure; I73.9 Peripheral vascular disease, unspecified; R06.02 Shortness of breath
CPT/HCPCS: G0166